=== PATIENT | female | born 1960 | race Two or more races ===

== ENCOUNTER 2018-02-23 21:23 | Emergency (ER) | payer OTHER ==
--- NOTE | 2018-02-23 23:05 | ER Document Report ---
ED Medical Screen (RME) - General Chief Complaint: Hand Pain Stated Complaint: FINGER INJURY Time Seen by Provider: 02/23/18 23:03 Mode of Arrival: Ambulatory Information source: Patient Notes: 57-year-old female presents to ED for complaint of pain to her right middle finger. She states that her neighbors and her's dogs were all in the yard together and she called the dog and he would not come to her she was standing on the top step tried to bring reach over to grab the dog to bring her to her. She states when she was pulling the dog her right middle finger snapped and then it looked funny and she thought she might have dislocated her finger. She states it will not move now. Patient's finger is flexed at 1 of its joints and she states it hurts too much to try to straighten it. I have greeted and performed a rapid initial assessment of this patient. A comprehensive ED assessment and evaluation of the patient, analysis of test results and completion of medical decision making process will be conducted by an additional ED providers. TRAVEL OUTSIDE OF THE [place] IN LAST 30 DAYS: No - Related Data Allergies/Adverse Reactions: codeine Allergy (Verified 06/17/16 16:33) Past Medical History - Past Medical History Cardiac Medical History: Reports: Hx Hypertension Pulmonary Medical History: Denies: Hx Tuberculosis Neurological Medical History: Reports: Hx Cerebrovascular Accident. Denies: Hx Seizures Psychiatric Medical History: Reports: Hx Anxiety Denies: Hx Depression - Immunizations Hx Diphtheria, Pertussis, Tetanus Vaccination: Yes Physical Exam - Vital signs Vitals: Temp Pulse Resp BP Pulse Ox 98.6 F 91 18 200/103 H 97 02/23/18 21:30 02/23/18 21:30 02/23/18 21:30 02/23/18 21:30 02/23/18 21:30 Course - Vital Signs Vital signs: Temp Pulse Resp BP Pulse Ox 98.6 F 91 18 200/103 H 97 02/23/18 21:30 02/23/18 21:30 02/23/18 21:30 02/23/18 21:30 02/23/18 21:30
--- NOTE | 2018-02-23 23:47 | RADIOLOGY REPORT (SQ) ---
EXAM DESCRIPTION: XR HAND 3 OR MORE VIEWS COMPLETED DATE/TME: 02/23/2018 23:03 CLINICAL HISTORY: pain and injury right middle finger COMPARISON: None. FINDINGS: 3 views of the right hand. No acute fracture or dislocation. Normal osseous mineralization. No radiopaque foreign bodies. IMPRESSION: No acute fracture or dislocation.
--- NOTE | 2018-02-24 00:30 | ER Document Report ---
ED Hand/Wrist Injury - General Chief Complaint: Hand Pain Stated Complaint: FINGER INJURY Time Seen by Provider: 02/23/18 23:03 Mode of Arrival: Ambulatory Notes: Patient with complaint of possible dislocated finger. Patient reports that she reached out for her dog when her right 3rd digit "slipped out of place". No trauma. TRAVEL OUTSIDE OF THE [place] IN LAST 30 DAYS: No - Related Data Allergies/Adverse Reactions: codeine Allergy (Verified 06/17/16 16:33) Past Medical History - General Information source: Patient - Social History Smoking Status: Current Every Day Smoker Frequency of alcohol use: None Drug Abuse: None Lives with: Family Family History: Arthritis, CAD, CVA, DM, Hyperlipidemia, Hypertension - Past Medical History Cardiac Medical History: Reports: Hx Hypertension Pulmonary Medical History: Denies: Hx Tuberculosis Neurological Medical History: Reports: Hx Cerebrovascular Accident. Denies: Hx Seizures Psychiatric Medical History: Reports: Hx Anxiety Denies: Hx Depression - Immunizations Hx Diphtheria, Pertussis, Tetanus Vaccination: Yes Review of Systems - Review of Systems Constitutional: No symptoms reported EENT: No symptoms reported Cardiovascular: No symptoms reported Respiratory: No symptoms reported Gastrointestinal: No symptoms reported Genitourinary: No symptoms reported Female Genitourinary: No symptoms reported Musculoskeletal: See HPI Skin: No symptoms reported Hematologic/Lymphatic: No symptoms reported Neurological/Psychological: No symptoms reported Physical Exam - Vital signs Vitals: Temp Pulse Resp BP Pulse Ox 98.6 F 91 18 200/103 H 97 02/23/18 21:30 02/23/18 21:30 02/23/18 21:30 02/23/18 21:30 02/23/18 21:30 - Notes Notes: PHYSICAL EXAMINATION: GENERAL: Well-appearing, well-nourished and in no acute distress. HEAD: Atraumatic, normocephalic. EYES: Pupils equal round and reactive to light, extraocular movements intact, conjunctiva are normal. ENT: Nares patent, oropharynx clear without exudates. Moist mucous membranes. NECK: Normal range of motion, supple without lymphadenopathy LUNGS: Breath sounds clear to auscultation bilaterally and equal. No wheezes rales or rhonchi. HEART: Regular rate and rhythm without murmurs Female : deferred Musculoskeletal: Normal range of motion, no pitting or edema. No cyanosis. Right 3rd digit extended towards palm. NEUROLOGICAL: Cranial nerves grossly intact. Normal speech, normal gait. Normal sensory, motor exams PSYCH: Normal mood, normal affect. SKIN: Warm, Dry, normal turgor, no rashes or lesions noted. Course - Re-evaluation Re-evalutation: Patient with involuntary extension of third right digit. Finger extended towards palm. Finger repositioned easily and without pain. Xray is negative for any acute fractures or dislocation. Will myah tape finger to second digit and have patient follow up with ortho next week. - Vital Signs Vital signs: Temp Pulse Resp BP Pulse Ox 98.0 F 67 15 211/100 H 95 02/24/18 00:44 02/24/18 00:44 02/24/18 00:44 02/24/18 02:05 02/24/18 00:44 Procedures - Immobilization right 3rd digit Immobilizer type: Other Performed by: Provider assisted Post-Proc Neuro Vasc Exam: Normal Alignment checked and good: Yes Discharge - Discharge Clinical Impression: Finger injury Qualifiers: Encounter type: initial encounter Laterality: right Qualified Code(s): S69.91XA - Unspecified injury of right wrist, hand and finger(s), initial encounter Condition: Stable Disposition: HOME, SELF-CARE Additional Instructions: Finger Tendon Injury/strain You had a finger tendon strain. It has been put back into proper position and splinted. The ligament and joint capsule injuries require time for healing. Sometimes the joint will remain somewhat enlarged by the scar tissue formed during the healing process. The usual treatment is to immobilize the joint with a splint while healing begins. The hand should be cold-packed and elevated. Once the swelling and pain are decreased, [id number] exercises are prescribed to prevent permanent stiffness of the joint. Some degree of protection is usually necessary for three to four weeks. Call the doctor or return at once if the finger becomes numb, dusky, or severely swollen, or if pain becomes severe. Please call Dr. chapman's office in the morning on Tuesday to schedule an appointment. Please keep the splint in place until you are seen by the orthopedic provider. If you experience pain or discomfort you can take ibuprofen. Referrals: ANTHONY LANCASTER, [ACTIVE STAFF] - Follow up as needed
[2018-02-24] MEDS ORDERED: LISINOPRIL 10 MG TABLET PO ONE (00:54)
[2018-02-24] MEDS ORDERED: HYDRALAZINE HCL 50 MG TABLET PO ONE (00:55)
[2018-02-24] MEDS ORDERED: AMLODIPINE BESYLATE 5 MG TABLET PO ONE (00:55)
[2018-02-24 02:20] VITALS: BP 211/100
== END 2018-02-24 02:05 | disposition home or self-care (01) ==
LOC: ER 21:23
DX: S69.91XA Unspecified injury of right wrist, hand and finger(s), initial encounter (principal); X58.XXXA Exposure to other specified factors, initial encounter; Y93.89 Activity, other specified; Y92.9 Unspecified place or not applicable; Y99.9 Unspecified external cause status; Z88.8 Allergy status to other drugs, medicaments and biological substances
CPT/HCPCS: 99283

== ENCOUNTER 2019-06-21 18:52 | Inpatient (IN) | payer SELFPAY ==
[2019-06-21] MEDS ORDERED: HYDRALAZINE HCL INJ/PF 20 MG/1 ML SDV IV ONE ×3 (19:09→19:41)
--- NOTE | 2019-06-21 19:20 | ER Document Report ---
ED Neuro Symptoms/Deficit - General Chief Complaint: S/S of Possible Stroke Stated Complaint: POSSIBLE STROKE Time Seen by Provider: 06/21/19 19:04 Mode of Arrival: Stretcher Information source: Patient, Relative, Emergency Med Personnel Notes: Poor historian TRAVEL OUTSIDE OF THE [place] IN LAST 30 DAYS: No - HPI Patient complains to provider of: Difficulty standing, Paralysis - Right-sided body Onset: Yesterday Symptoms are: Constant Duration: Continues in ED Quality of pain: No pain Loss of consciousness: No loss of consciousness Was STROKE ALERT Called: No Baseline Cognitive: Alert, oriented X 3 Baseline Gait: Uses a cane/walker Pre-existing weakness: Lower extremity Alert To: Name/Voice Patient Orientation: Person, Place, Time, Events New weakness: RUE, RLE Altered sensation: denies: LUE, LLE, RUE, RLE, L facial, R facial, General (diffuse) Decreased ability to stand/walk: Cannot stand Impaired speech/swallowing: Difficult Vision problem/glaucoma: No Associated symptoms: denies: Chest pain Notes: Previous stroke in 2013. Noncompliant with medications for hypertension. Lives alone. - Related Data Allergies/Adverse Reactions: codeine Allergy (Verified 06/17/16 16:33) Home Medications: Lisiniopril, HCTz, ASA Past Medical History - General Information source: Patient - Social History Smoking Status: Unknown if Ever Smoked Family History: Arthritis, CAD, CVA, DM, Hyperlipidemia, Hypertension Patient has suicidal ideation: No Patient has homicidal ideation: No - Past Medical History Cardiac Medical History: Reports: Hx Hypertension Pulmonary Medical History: Denies: Hx Tuberculosis Neurological Medical History: Reports: Hx Cerebrovascular Accident. Denies: Hx Seizures Renal/ Medical History: Denies: Hx Peritoneal Dialysis Psychiatric Medical History: Reports: Hx Anxiety Denies: Hx Depression - Immunizations Hx Diphtheria, Pertussis, Tetanus Vaccination: Yes Review of Systems - Review of Systems Notes: Constitutional: Negative for fever. HENT: Negative for sore throat. Eyes: Negative for visual changes. Cardiovascular: Negative for chest pain. Respiratory: Negative for shortness of breath. Gastrointestinal: Negative for abdominal pain, vomiting or diarrhea. Genitourinary: Negative for dysuria. Musculoskeletal: Negative for back pain. Skin: Negative for rash. Neurological: As per HPI. 10 point ROS negative except as marked above and in HPI. Physical Exam - Vital signs Vitals: Pulse Resp BP Pulse Ox 63 16 223/123 H 100 06/21/19 19:02 06/21/19 19:02 06/21/19 19:02 06/21/19 19:02 Notes: GENERAL: Chronically ill-appearing female with obvious dense right hemiplegia SKIN: Good turgor no rashes. HEAD: Normocephalic atraumatic. EYES: PERRLA. Conjunctivae and sclerae clear. EARS: CANALS AND TMS CLEAR. NOSE: CLEAR. MOUTH: Moist mucosa. Poor dentition. No stridor or edema. No drooling. NECK: Supple. No masses or thyromegaly. No adenopathy. Carotids 2+ without bruits. No JVD. BACK: Symmetrical without tenderness. CHEST: Respirations unlabored. Breath sounds clear and symmetrical. HEART: Regular rhythm. No murmur gallop or rub. ABDOMEN: Soft nontender without masses, organomegaly or rebound. Bowel sounds normally active. No bruits. GENITALIA: Deferred. EXTREMITIES: No edema. No calf tenderness. Cap refill less than 1.5 seconds. Dorsalis pedis and posterior tibial pulses 3+ and symmetrical. NEUROLOGICAL: GCS 15. Alert and oriented x3. Unable to stand. Right hemiplegia. No sensory deficit detected. Finger-nose testing is normal on the left. No facial ptosis appreciated. Course - Re-evaluation Re-evalutation: 06/21/19 19:21 Patient is not a candidate for lytic therapy due to the timing of her p resentation. Her blood pressure is also uncontrolled. We will initiate IV hydralazine. Head CT is ordered as well as CBC coags and comprehensive metabolic profile. 06/21/19 19:42 BP still >200/100. 2nd IV dose Hydralazine orderd. 06/21/19 22:16 Patient was given additional dose of labetalol IV and her blood pressure is now 155 systolic. Her neurologic deficits are unchanged. Case is discussed with the hospitalist on-call Dr. Jero Aaron who has accepted for admission. - Vital Signs Vital signs: Temp Pulse Resp BP Pulse Ox 67 16 238/146 H 100 06/21/19 19:10 06/21/19 19:10 06/21/19 19:10 06/21/19 19:10 - Laboratory Result Diagrams: 06/21/19 18:55 06/21/19 20:11 - EKG Interpretation by Ok EKG shows normal: Sinus rhythm - LVH with repolarization changes essentially unchanged from old EKG 2013. Critical Care Note - Critical Care Note Total time excluding time spent on procedures (mins): 75 Comments: IV hydralazine to be administered for control blood pressure. IV labetalol administered for lowering blood pressure. Discharge - Discharge Clinical Impression: Subacute CVA, Hypertensive emergency Condition: Fair Disposition: ADMITTED INPATIENT Admitting Provider: Galen (Hospitalist) Unit Admitted: [facility]
[2019-06-21 19:21] LABS: ABSOLUTE EOSINOPHILS # (AUTO) 0.1 10^3/uL (0.0-0.6); ABSOLUTE LYMPHOCYTES (AUTO) 1.2 10^3/uL (0.5-4.7); ABSOLUTE MONOCYTES (AUTO) 0.5 10^3/uL (0.1-1.4); ABSOLUTE NEUT (AUTO) 4.8 10^3/uL (1.7-8.2); BASOPHILS % (AUTO) 0.2 % (0-2); EOSINOPHILS % (AUTO) 0.8 % (0-6); HEMATOCRIT 51.2 % (36.0-47.0); HEMOGLOBIN 17.4 g/dL (12.0-15.5); LYMPHOCYTES % (AUTO) 18.1 % (13-45); MEAN CORPUSCULAR HEMOGLOBIN 32.8 pg (27.0-33.4); MEAN CORPUSCULAR HGB CONC 33.9 g/dL (32.0-36.0); MEAN CORPUSCULAR VOLUME 97 fl (80-97); MONOCYTES % (AUTO) 7.6 % (3-13); PLATELET COUNT 206 10^3/uL (150-450); RED CELL DISTRIBUTION WIDTH 13.6 % (11.5-14.0); SEGMENTED NEUTROPHILS % (AUTO) 73.3 % (42-78); TOTAL CELLS COUNTED % (AUTO) 100 %; WHITE BLOOD COUNT 6.6 10^3/uL (4.0-10.5)
[2019-06-21 19:29] LABS: INTERNATIONAL RATION (INR) 0.91; PARTIAL THROMBOPLASTIN TIME 26.5 SEC (23.5-35.8); PROTHROMBIN TIME 12.2 SEC (11.4-15.4)
--- NOTE | 2019-06-21 19:43 | RADIOLOGY REPORT (SQ) ---
EXAM DESCRIPTION: CT HEAD WITHOUT COMPLETED DATE/TIME: 06/21/2019 7:30 pm REASON FOR STUDY: cva COMPARISON: CT HEAD 12/20/2013 TECHNIQUE: Axial images acquired through the brain without intravenous contrast. Images reviewed wi th bone, brain and subdural windows. Additional sagittal and coronal reconstructions were generated. Images stored on PACS. All CT scanners at this facility use dose modulation, iterative reconstruction, and/or weight based d osing when appropriate to reduce radiation dose to as low as reasonably achievable (ALARA). [facility]: Dose Right [facility]: CareDose [facility]: Dose Right [facility]: Teradose 4D [facility]: [employer] RADIATION DOSE: CT Rad equipment meets quality standard of care and radiation dose reduction techniq ues were employed. CTDIvol: 53.2 mGy. DLP: 1017 mGy-cm. mGy. LIMITATIONS: None. FINDINGS: VENTRICLES: Normal size and contour. CEREBRUM: No masses. No hemorrhage. No midline shift. No evidence for acute infarction. Old left cerebellar infarct. Few scattered areas of low density in the white matter most likely chronic small vessel ischemic changes. CEREBELLUM: No masses. No hemorrhage. No alteration of density. No evidence for acute infarction. EXTRAAXIAL SPACES: No fluid collections. No masses. ORBITS AND GLOBE: No intra- or extraconal masses. Normal contour of globe without masses. CALVARIUM: No fracture. PARANASAL SINUSES: No fluid or mucosal thickening. SOFT TISSUES: No mass or hematoma. OTHER: No other significant finding. IMPRESSION: No acute intracranial findings. Old left cerebellar infarct and chronic small vessel is chemic changes. EVIDENCE OF ACUTE STROKE: NO. COMMENT: Quality ID # [id number]: Final reports with documentation of one or more dose reduction techniques (e.g., Automated exposure control, adjustment of the mA and/or kV according to patient size, use of iterative reconstruction technique) TECHNICAL DOCUMENTATION: JOB ID: [id number] [employer]- All Rights Reserved Reading location - IP/workstation name: [email or web address]
--- NOTE | 2019-06-21 19:44 | RADIOLOGY REPORT (SQ) ---
EXAM DESCRIPTION: CHEST SINGLE VIEW COMPLETED DATE/TIME: 06/21/2019 7:33 pm REASON FOR STUDY: cva COMPARISON: 12/18/2013 EXAM PARAMETERS: NUMBER OF VIEWS: One view. TECHNIQUE: Single frontal radiographic view of the chest acquired. RADIATION DOSE: NA LIMITATIONS: None. FINDINGS: LUNGS AND PLEURA: No opacities, masses or pneumothorax. No pleural effusion. MEDIASTINUM AND HILAR STRUCTURES: No masses. Contour normal. HEART AND VASCULAR STRUCTURES: Heart normal in size. Normal vasculature. BONES: No acute findings. HARDWARE: None in the chest. OTHER: No other significant finding. IMPRESSION: NO ACUTE RADIOGRAPHIC FINDING IN THE CHEST. TECHNICAL DOCUMENTATION: JOB ID: [id number] [employer]- All Rights Reserved Reading location - IP/workstation name: [email or web address]
[2019-06-21 20:14] LABS: APPEARANCE,URINE SLIGHTLY-CLOUDY; BILIRUBIN,URINE NEGATIVE (NEGATIVE); COLOR,URINE YELLOW; GLUCOSE, URINE NEGATIVE (NEGATIVE); KETONES,URINE TRACE mg/dL (NEGATIVE); LEUKOCYTE ESTERASE,URINE TRACE (NEGATIVE); NITRITE,URINE NEGATIVE (NEGATIVE); PROTEIN,URINE NEGATIVE (NEGATIVE); URINE SPECIFIC GRAVITY 1.018; UROBILINOGEN,URINE NEGATIVE mg/dL (<2.0)
[2019-06-21] MEDS ORDERED: LABETALOL HCL INJ 20 MG/4 ML DISP.SYRIN IV ONE (20:56)
[2019-06-21 20:58] LABS: ALBUMIN 4.5 g/dL (3.5-5.0); ALKALINE PHOSPHATASE 77 U/L (38-126); ANION GAP 10 (5-19); ASPARTATE AMINO TRANSFERASE 36 U/L (14-36); BILIRUBIN,DIRECT 0.3 mg/dL (0.0-0.4); BILIRUBIN,TOTAL 1.6 mg/dL (0.2-1.3); BLOOD UREA NITROGEN 19 mg/dL (7-20); CALCIUM 10.1 mg/dL (8.4-10.2); CARBON DIOXIDE 30 mmol/L (22-30); CHLORIDE 100 mmol/L (98-107); GLUCOSE 101 mg/dL (75-110); POTASSIUM 3.4 mmol/L (3.6-5.0); TOTAL PROTEIN 7.8 g/dL (6.3-8.2)
[2019-06-21 20:59] LABS: ALCOHOL < 10 mg/dL (NONE DETECTED)
[2019-06-21 21:32] LABS: URINE AMPHETAMINES SCREEN NEGATIVE; URINE BARBITURATES SCREEN NEGATIVE; URINE BENZODIAZEPINES SCREEN NEGATIVE; URINE COCAINE SCREEN NEGATIVE; URINE MARIJUANA (THC) SCREEN UNCONFIRMED POSITIVE; URINE METHADONE SCREEN NEGATIVE; URINE PHENCYCLIDINE SCREEN NEGATIVE
[2019-06-21] MEDS ORDERED: ASPIRIN 300 MG SUPP, RECTAL PR ONE (22:30)
[2019-06-21] MEDS ORDERED: DEXTROSE 40% GEL 15 GM TUBE PO PRN ×2 (22:38)
[2019-06-21] MEDS ORDERED: DEXTROSE 50%-WATER 25 GM/50 ML DISP.SYRIN IV PRN ×2 (22:38)
[2019-06-21] MEDS ORDERED: ACETAMINOPHEN 650 MG SUPP.RECT PR PRN (22:38)
[2019-06-21] MEDS ORDERED: GLUCAGON,HUMAN RECOMB 1 MG INJ IM PRN (22:38)
--- NOTE | 2019-06-21 22:38 | EKG REPORT ---
SEVERITY:- ABNORMAL ECG - SINUS RHYTHM PROBABLE LEFT ATRIAL ABNORMALITY LVH WITH SECONDARY REPOLARIZATION ABNORMALITY ANTERIOR INJURY, EARLY ACUTE INFARCT : Confirmed by: Saeed Luciano 21-Jun-2019 22:37:52
[2019-06-21] MEDS ORDERED: METOPROLOL TARTRATE PF/INJ 5 MG/5 ML SDV IV PRN (22:42)
[2019-06-21] MEDS ORDERED: ENALAPRILAT DIHYDRATE INJ/PF 1.25 MG/1 ML SDV IV PRN (22:42)
[2019-06-21] MEDS ORDERED: FAMOTIDINE INJ/PF 20 MG/2 ML SDV IV ONE (23:00)
[2019-06-22] MEDS ORDERED: INFLUENZA QUAD (6MOS+) 2019-20 VAC 0.5 ML SYR IM ONE (01:59)
--- NOTE | 2019-06-22 05:01 | PDOC H&P ---
History of Present Illness Admission Date/PCP: 06/21/19 22:23 Patient complains of: Right-sided weakness History of Present Illness: RODOLFO MUÑOZ is a 59 year old female with a past medical history of diabetes, hypertension, dyslipidemia, CVA without significant residual, tobacco and cannabis use. Patient presents 24 hours after the onset of right-sided weakness slurred speech, cough and difficulty swallowing. In the emergency room she is found to have hypertensive emergency with a blood pressure of 245/130 she receives hydralazine and referred to the hospitalist for admission. CT head shows prior ischemic stroke, EKG shows strain pattern. Patient is a poor historian but denies palpitations Past Medical History Cardiac Medical History: Reports: Hypertension Pulmonary Medical History: Reports: Bronchitis Denies: Tuberculosis Neurological Medical History: Reports: Ischemic CVA Denies: Seizures Endocrine Medical History: Reports: Diabetes Mellitus Type 1 Psychiatric Medical History: Reports: Substance Abuse, Tobacco Dependency Denies: Depression Social History Information Source: Patient, [facility] Records Smoking Status: Current Every Day Smoker Cigarettes Packs Per Day: 1 Electronic Cigarette use?: No Frequency of Alcohol Use: Heavy Hx Recreational Drug Use: No Drugs: Marijuana Hx Prescription Drug Abuse: No - Advance Directive Resuscitation Status: Full Code Family History Family History: Arthritis, CAD, CVA, DM, Hyperlipidemia, Hypertension Parental Family History Reviewed: Yes Children Family History Reviewed: Yes Sibling(s) Family History Reviewed.: Yes Medication/Allergy Home Medications: Amlodipine Besylate [Norvasc 5 mg Tablet] 5 mg PO Q12 #0 tablet 12/21/13 Aspirin [Ecotrin 325 mg EC Tablet] 325 mg PO DAILY #0 tabec 12/21/13 Calcium Carbonate [Tums] 1 tab.chew PO TID #1 pkg 12/21/13 Famotidine [Pepcid 20 mg Tablet] 20 mg PO Q12 #0 tablet 12/21/13 Hydralazine HCl [Apresoline 50 mg Tablet] 50 mg PO Q12 #0 tablet 12/21/13 Lisinopril [Prinivil 10 mg Tablet] 10 mg PO Q12 #0 tablet 12/21/13 Oxycodone HCl/Acetaminophen [Percocet 5-325 mg Tablet] 1 tab PO Q4HP PRN #30 tablet 12/21/13 Simvastatin [Zocor 40 mg Tablet] 40 mg PO QHS #0 tablet 12/21/13 Cephalexin Monohydrate [Keflex 500 mg Capsule] 500 mg PO QID #28 capsule 06/17/16 Hydrocodone/Acetaminophen [Strawn 5-325 mg Tablet] 1 tab PO Q6HP PRN #14 tablet 06/17/16 Sulfamethoxazole/Trimethoprim [Bactrim Ds Tablet] 1 each PO BID #14 tablet 06/17/16 Allergies/Adverse Reactions: codeine Allergy (Verified 06/17/16 16:33) Review of Systems Constitutional: ABSENT: chills, fever(s), headache(s), weight gain, weight loss Eyes: ABSENT: visual disturbances Ears: ABSENT: hearing changes Cardiovascular: ABSENT: chest pain, dyspnea on exertion, edema, orthropnea, palpitations Respiratory: ABSENT: cough, hemoptysis Gastrointestinal: ABSENT: abdominal pain, constipation, diarrhea, hematemesis, hematochezia, nausea, vomiting Genitourinary: ABSENT: dysuria, hematuria Musculoskeletal: ABSENT: joint swelling Integumentary: ABSENT: rash, wounds Neurological: ABSENT: abnormal gait, abnormal speech, confusion, dizziness, focal weakness, syncope Psychiatric: ABSENT: anxiety, depression, homidical ideation, suicidal ideation Endocrine: ABSENT: cold intolerance, heat intolerance, polydipsia, polyuria Hematologic/Lymphatic: ABSENT: easy bleeding, easy bruising Physical Exam Vital Signs: Temp Pulse Resp BP Pulse Ox 97.9 F 51 L 16 167/82 H 95 06/22/19 04:09 06/22/19 04:09 06/22/19 04:09 06/22/19 04:09 06/22/19 04:09 Intake & Output 06/20/19 06/21/19 06/22/19 11:59 11:59 11:59 Weight 48.5 kg General appearance: PRESENT: cooperative, disheveled, mild distress, well- developed, well-nourished Head exam: PRESENT: atraumatic, normocephalic Eye exam: PRESENT: conjunctiva pink, EOMI, PERRLA. ABSENT: scleral icterus Ear exam: PRESENT: normal external ear exam Mouth exam: PRESENT: moist. ABSENT: tongue midline Teeth exam: PRESENT: poor dentation Neck exam: ABSENT: carotid bruit, JVD, lymphadenopathy, thyromegaly Respiratory exam: PRESENT: clear to auscultation magy. ABSENT: rales, rhonchi, wheezes Cardiovascular exam: PRESENT: RRR. ABSENT: diastolic murmur, rubs, systolic murmur Pulses: PRESENT: normal dorsalis pedis pul Vascular exam: PRESENT: normal capillary refill GI/Abdominal exam: PRESENT: normal bowel sounds, soft. ABSENT: distended, guarding, mass, organolmegaly, rebound, tenderness Rectal exam: PRESENT: deferred Extremities exam: PRESENT: full ROM. ABSENT: calf tenderness, clubbing, pedal edema Musculoskeletal exam: PRESENT: full ROM, other - 4+ of 5 strength in the right upper extremity. ABSENT: normal inspection, tenderness Neurological exam: PRESENT: alert, awake, oriented to person, oriented to place, oriented to time, oriented to situation, CN II-XII grossly intact. ABSENT: motor sensory deficit Psychiatric exam: PRESENT: appropriate affect, normal mood. ABSENT: homicidal ideation, suicidal ideation Skin exam: PRESENT: dry, intact, warm. ABSENT: cyanosis, rash Results Laboratory Results: 06/21/19 18:55 06/21/19 20:11 06/21/19 06/21/19 06/21/19 18:55 18:55 19:55 WBC 6.6 RBC 5.30 H Hgb 17.4 H Hct 51.2 H MCV 97 MCH 32.8 MCHC 33.9 RDW 13.6 Plt Count 206 Seg Neutrophils % 73.3 Sodium Cancelled Potassium Cancelled Chloride Cancelled Carbon Dioxide Cancelled Anion Gap Cancelled BUN Cancelled Creatinine Cancelled Est GFR ( Amer) Cancelled Est GFR (Non-Af Amer) Cancelled Glucose Cancelled Calcium Cancelled Total Bilirubin Cancelled AST Cancelled Alkaline Phosphatase Cancelled Total Protein Cancelled Albumin Cancelled Urine Color YELLOW Urine Appearance SLIGHTLY-CLOUDY Urine pH 5.0 Ur Specific [place] 1.018 Urine Protein NEGATIVE Urine Glucose (UA) NEGATIVE Urine Ketones TRACE H Urine Blood NEGATIVE Urine Nitrite NEGATIVE Ur Leukocyte Esterase TRACE H Urine WBC (Auto) 5 Urine RBC (Auto) 2 06/21/19 20:11 WBC RBC Hgb Hct MCV MCH MCHC RDW Plt Count Seg Neutrophils % Sodium 139.5 Potassium 3.4 L Chloride 100 Carbon Dioxide 30 Anion Gap 10 BUN 19 Creatinine 0.82 Est GFR ( Amer) > 60 Est GFR (Non-Af Amer) Glucose 101 Calcium 10.1 Total Bilirubin 1.6 H AST 36 Alkaline Phosphatase 77 Total Protein 7.8 Albumin 4.5 Urine Color Urine Appearance Urine pH Ur Specific [place] Urine Protein Urine Glucose (UA) Urine Ketones Urine Blood Urine Nitrite Ur Leukocyte Esterase Urine WBC (Auto) Urine RBC (Auto) 06/21/19 06/21/19 18:55 20:11 Troponin I Cancelled 0.043 Impressions: Chest X-Ray 06/21/19 19:12 IMPRESSION: NO ACUTE RADIOGRAPHIC FINDING IN THE CHEST. Head CT 06/21/19 19:12 IMPRESSION: No acute intracranial findings. Old left cerebellar infarct and chronic small vessel ischemic changes. EVIDENCE OF ACUTE STROKE: NO. Assessment and Plan - Diagnosis (1) CVA (cerebral vascular accident) Is this a current diagnosis for this admission?: Yes Plan: CVA care set deployed, comp gated by dysphasia, [place] aspirin, permissive hypertension, follow-up physical, occupational, speech therapy. Will undoubtedly require placement (2) Diabetes 1.5, managed as type 1 Is this a current diagnosis for this admission?: Yes Plan: Humalog every 6 hours, follow-up A1c (3) Hypertensive emergency Is this a current diagnosis for this admission?: Yes Plan: Permissive hypertension, Lopressor PRN systolic pressure greater than 200 - Time Time Spent with patient: 25-34 minutes - Inpatient Certification Medical Necessity: Need Close Monitoring Due to Risk of Patient Decompensation
[2019-06-22 05:40] LABS: HEMATOCRIT 47.3 % (36.0-47.0); HEMOGLOBIN 16.4 g/dL (12.0-15.5); MEAN CORPUSCULAR HEMOGLOBIN 33.2 pg (27.0-33.4); MEAN CORPUSCULAR HGB CONC 34.6 g/dL (32.0-36.0); MEAN CORPUSCULAR VOLUME 96 fl (80-97); PLATELET COUNT 181 10^3/uL (150-450); RED BLOOD COUNT 4.93 10^6/uL (3.72-5.28); RED CELL DISTRIBUTION WIDTH 13.6 % (11.5-14.0); WHITE BLOOD COUNT 5.8 10^3/uL (4.0-10.5)
[2019-06-22 05:57] LABS: ANION GAP 8 (5-19); BLOOD UREA NITROGEN 19 mg/dL (7-20); CALCIUM 9.6 mg/dL (8.4-10.2); CARBON DIOXIDE 31 mmol/L (22-30); CHLORIDE 98 mmol/L (98-107); CHOLESTEROL 185.16 mg/dL (0-200); GLUCOSE 99 mg/dL (75-110); POTASSIUM 3.1 mmol/L (3.6-5.0); TRIGLYCERIDES 95 mg/dL (<150)
[2019-06-22] MEDS: HEPARIN SOD (PORCINE) 5,000 UNIT/ML 1 ML VIAL SUBCUT SCH ×2 (05:57→14:49)
[2019-06-22 06:13] LABS: DIRECT LDL 95 mg/dL (<100)
[2019-06-22] MEDS ORDERED: POTASSI CL 20 MEQ/50 ML RIDER 20 MEQ/50 ML RTUPB IV ONE (07:34)
[2019-06-22] MEDS ORDERED: POTASSIUM CHLORIDE 10 MEQ CAPSULE.ER PO ONE ×2 (07:34→10:56)
[2019-06-22] MEDS ORDERED: FAMOTIDINE INJ/PF 20 MG/2 ML SDV IV SCH (10:00)
[2019-06-22] MEDS ORDERED: ASPIRIN 300 MG SUPP, RECTAL PR SCH (10:00)
[2019-06-22] MEDS ORDERED: ASPIRIN 325 MG TABLET, ENT COATED PO SCH (11:30)
--- NOTE | 2019-06-22 14:26 | RADIOLOGY REPORT (SQ) ---
EXAM DESCRIPTION: CAROTID DOPPLER COMPLETED DATE/TIME: 06/22/2019 2:01 pm REASON FOR STUDY: cva COMPARISON: 12/19/2013 TECHNIQUE: Grayscale ultrasound, Doppler velocity and spectra, and color Doppler images acquired of the extra-cranial carotid and vertebral arteries. Images stored on PACS. LIMITATIONS: None. FINDINGS: RIGHT CAROTID CCA Velocities: Within normal limits. ICA Velocities Peak systolic 0.63 m/s. End diastolic 0.39 m/s. Proximal ICA/CCA peak systolic ratio 1.01. Spectra normal. No significant plaque. LEFT CAROTID CCA Velocities: Within normal limits. ICA Velocities Peak systolic 0.79 m/s. End diastolic 0.34 m/s. Proximal ICA/CCA peak systolic ratio 1.27. Spectra normal. No significant plaque. VERTEBRAL ARTERIES: Antegrade flow. Normal waveforms. SUBCLAVIAN ARTERIES: No finding. OTHER: No other significant finding. IMPRESSION: NO HEMODYNAMICALLY SIGNIFICANT STENOSIS. COMMENT: Quality ID #[id number]: Velocity criteria are extrapolated from the diameter data as defined by t he Society of Radiologists in Ultrasound Consensus Conference. Radiology 2003: 229; 340-346. TECHNICAL DOCUMENTATION: JOB ID: [id number] [employer]- All Rights Reserved Reading location - IP/workstation name: [email or web address]
--- NOTE | 2019-06-22 14:46 | RADIOLOGY REPORT (SQ) ---
EXAM DESCRIPTION: MRI HEAD WITHOUT COMPLETED DATE/TIME: 06/22/2019 2:33 pm REASON FOR STUDY: Right sided weakness, dysarthria COMPARISON: MR brain, 12/18/2013 TECHNIQUE: Multisequence multiplanar noncontrast MR examination of the brain including diffusion-rosalie ghted sequences. LIMITATIONS: None. FINDINGS: ANATOMY: No anomalies. Normal vascular flow voids. Pituitary fossa normal. CSF SPACES: Normal in size and contour. No hemorrhage. CEREBRUM: Sulci and gyri normal in size and contour. There is extensive scattered and confluent hugo ventricular and deep white matter T2/FLAIR hyperintensity with multiple small nonacute lacunar infarc tions of the bilateral basal ganglia and camargo radiata. POSTERIOR FOSSA: Encephalomalacia of the left cerebellar hemisphere in keeping with prior infarction. No hemorrhage. No edema, masses or mass effect. Internal auditory canals, cerebello-pontine angles , mastoids normal. DIFFUSION IMAGING: There is an acute diffusion restricting infarction of the left paramedian grace. ORBITS: No masses. Globes normal. PARANASAL SINUSES: No fluid levels. Mucosa normal. OTHER: No other significant finding. IMPRESSION: 1. There is an acute diffusion restricting infarction of the left paramedian grace. 2. Advanced small vessel white matter disease and evidence of prior lacunar and left cerebellar jeison spheric infarctions. EVIDENCE OF ACUTE STROKE: YES. TECHNICAL DOCUMENTATION: JOB ID: [id number] [employer]- All Rights Reserved Reading location - IP/workstation name: [email or web address]
--- NOTE | 2019-06-22 14:51 | RADIOLOGY REPORT (SQ) ---
EXAM DESCRIPTION: MRA HEAD WITHOUT COMPLETED DATE/TIME: 06/22/2019 2:40 pm REASON FOR STUDY: CVA COMPARISON: None. TECHNIQUE: Axial 3-D [id number]-[id number] acquisition imaging performed through the brain in the area of t he [place]. Images reformatted using 3-D MIPS. LIMITATIONS: None. FINDINGS: SOURCE IMAGES: No unexpected findings on source images. No large masses. 3-D MIP: No aneurysm. No occlusions. No significant stenosis. OTHER: No other significant finding. IMPRESSION: NORMAL MRA OF THE [place]. TECHNICAL DOCUMENTATION: JOB ID: [id number] [employer]- All Rights Reserved Reading location - IP/workstation name: [email or web address]
[2019-06-22] MEDS ORDERED: AMLODIPINE BESYLATE 5 MG TABLET PO ONE (15:00)
[2019-06-22 15:32] VITALS: BP 174/98
--- NOTE | 2019-06-22 15:35 | PDOC TRANSFER SUMMARY ---
General Admission Date/PCP: 06/21/19 22:23 Resuscitation Status: Full Code - Transfer Diagnosis (1) CVA (cerebral vascular accident) Is this a current diagnosis for this admission?: Yes (2) Hypertensive emergency Is this a current diagnosis for this admission?: Yes - Transfer Medications Transfer Medications: Current Medications Acetaminophen (Tylenol 650 Mg Supp) 650 mg VA Q4HP PRN PRN Reason: Temp greater than 101F Stop: 07/21/19 22:37 Amlodipine Besylate (Norvasc 5 Mg Tablet) 5 mg PO NOW ONE Stop: 06/22/19 14:09 Aspirin (Ecotrin 325 Mg Ec Tablet) 325 mg PO DAILY [facility] Stop: 07/22/19 11:29 Last Admin: 06/22/19 10:58 Dose: 325 mg Documented by: Dextrose (Dextrose Inj 50% Syringe (25 Gm/50 Ml)) 12.5 gm IV PRN PRN; Protocol PRN Reason: FOR BG 50-69 IN ALERT PATIENT Stop: 07/21/19 22:37 Dextrose (Dextrose Inj 50% Syringe (25 Gm/50 Ml)) 25 gm IV PRN PRN; Protocol PRN Reason: PER PROTOCOL Stop: 07/21/19 22:37 Enalaprilat (Vasotec Inj/Pf 1.25 Mg/1 Ml Sdv) 1.25 mg IV Q6HP PRN PRN Reason: sbp>180 Stop: 07/21/19 22:41 Last Admin: 06/22/19 00:28 Dose: 1.25 mg Documented by: Famotidine (Pepcid Inj/Pf 20 Mg/2 Ml Sdv) 20 mg IV Q12 [facility] Stop: 07/22/19 09:59 Last Admin: 06/22/19 10:36 Dose: 20 mg Documented by: Glucagon (Glucagen Inj 1 Mg Vial) 1 mg IM PRN PRN; Protocol PRN Reason: Evaluate for BG < 70 Stop: 07/21/19 22:37 Glucose (Glutose 40% Gel 15 Gm Tube) 15 gm PO PRN PRN; Protocol PRN Reason: FOR BG 50-69 IN ALERT PATIENT Stop: 07/21/19 22:37 Glucose (Glutose 40% Gel 15 Gm Tube) 30 gm PO PRN PRN; Protocol PRN Reason: FOR BG < 50 IN ALERT PATIENT Stop: 07/21/19 22:37 Heparin Sodium (Porcine) (Heparin Inj 5,000 Units/Ml 1 Ml Vial) 5,000 unit SUBCUT Q8 KATE Stop: 07/22/19 05:59 Last Admin: 06/22/19 05:57 Dose: 5,000 unit Documented by: Metoprolol Tartrate (Lopressor Inj/Pf 5 Mg/5 Ml Sdv) 5 mg IV Q6HP PRN PRN Reason: sbp>200 Stop: 07/21/19 22:41 Sodium Chloride (Saline Flush 2.5 Ml Monoject Prefil Syrin) 2.5 ml IV Q8 KATE Stop: 07/22/19 05:59 Last Admin: 06/22/19 05:57 Dose: Not Given Documented by: - Allergies Allergies/Adverse Reactions: codeine Allergy (Verified 06/17/16 16:33) Hospital Course Hospital Course: This is a 59-year-old female with past medical history of diabetes mellitus, hypertension, dyslipidemia, prior CVA with no reported residual unilateral weakness who presented with acute right-sided weakness and slurred speech 24 hours after onset of symptoms. Patient was not a TPA candidate. She was admitted for likely acute CVA. Blood pressures were severely elevated in the ER. She was given IV hydralazine and labetalol which did improve her blood pressures. She was also started on aspirin and statin. CT of the head came back negative for bleed or acute CVA and only showed old left cerebellar infarct. Blood pressures have improved in the 160/80s. Allow permissive hypertension in the setting of acute CVA. MRI was ordered and just got done and showed an acute left pontine CVA. Patient will be transferred to the [facility]. They do have a neurology service. Discussed case with accepting hospitalist, Dr. Jose Hui who accepted the transfer. Physical Exam Vital Signs: Temp Pulse Resp BP Pulse Ox 98.3 F 64 18 172/87 H 94 06/22/19 11:54 06/22/19 11:54 06/22/19 11:54 06/22/19 11:54 06/22/19 11:54 Intake & Output 06/21/19 06/22/19 06/23/19 06:59 06:59 06:59 Intake Total 0 Balance 0 Weight 106 lb 14.787 oz 106 lb 14.787 oz General appearance: PRESENT: no acute distress, well-developed, well-nourished Head exam: PRESENT: atraumatic, normocephalic Eye exam: PRESENT: conjunctiva pink, PERRLA. ABSENT: scleral icterus Ear exam: PRESENT: normal external ear exam Mouth exam: PRESENT: moist, tongue midline Neck exam: ABSENT: carotid bruit, JVD, lymphadenopathy, thyromegaly Respiratory exam: PRESENT: clear to auscultation magy. ABSENT: rales, rhonchi, wheezes Cardiovascular exam: PRESENT: RRR. ABSENT: diastolic murmur, rubs, systolic murmur Pulses: PRESENT: normal dorsalis pedis pul GI/Abdominal exam: PRESENT: normal bowel sounds, soft. ABSENT: distended, guarding, mass, organolmegaly, rebound, tenderness Rectal exam: PRESENT: deferred Extremities exam: PRESENT: full ROM. ABSENT: calf tenderness, clubbing, pedal edema Neurological exam: PRESENT: alert, awake, oriented to person, oriented to place, motor sensory deficit - RSW 1/ Results Laboratory Results: 06/22/19 05:06 06/22/19 05:06 06/21/19 06/21/19 06/21/19 18:55 18:55 19:55 WBC 6.6 RBC 5.30 H Hgb 17.4 H Hct 51.2 H MCV 97 MCH 32.8 MCHC 33.9 RDW 13.6 Plt Count 206 Seg Neutrophils % 73.3 Sodium Cancelled Potassium Cancelled Chloride Cancelled Carbon Dioxide Cancelled Anion Gap Cancelled BUN Cancelled Creatinine Cancelled Est GFR ( Amer) Cancelled Est GFR (Non-Af Amer) Cancelled Glucose Cancelled Calcium Cancelled Magnesium Total Bilirubin Cancelled AST Cancelled Alkaline Phosphatase Cancelled Total Protein Cancelled Albumin Cancelled Triglycerides Cholesterol LDL Cholesterol Direct VLDL Cholesterol HDL Cholesterol Urine Color YELLOW Urine Appearance SLIGHTLY-CLOUDY Urine pH 5.0 Ur Specific [place] 1.018 Urine Protein NEGATIVE Urine Glucose (UA) NEGATIVE Urine Ketones TRACE H Urine Blood NEGATIVE Urine Nitrite NEGATIVE Ur Leukocyte Esterase TRACE H Urine WBC (Auto) 5 Urine RBC (Auto) 2 06/21/19 06/22/19 06/22/19 20:11 05:06 05:06 WBC 5.8 RBC 4.93 Hgb 16.4 H Hct 47.3 H MCV 96 MCH 33.2 MCHC 34.6 RDW 13.6 Plt Count 181 Seg Neutrophils % Sodium 139.5 136.9 L Potassium 3.4 L 3.1 L Chloride 100 98 Carbon Dioxide 30 31 H Anion Gap 10 8 BUN 19 19 Creatinine 0.82 0.85 Est GFR ( Amer) > 60 > 60 Est GFR (Non-Af Amer) Glucose 101 99 Calcium 10.1 9.6 Magnesium Total Bilirubin 1.6 H AST 36 Alkaline Phosphatase 77 Total Protein 7.8 Albumin 4.5 Triglycerides 95 Cholesterol 185.16 LDL Cholesterol Direct 95 VLDL Cholesterol 19.0 HDL Cholesterol 77 Urine Color Urine Appearance Urine pH Ur Specific [place] Urine Protein Urine Glucose (UA) Urine Ketones Urine Blood Urine Nitrite Ur Leukocyte Esterase Urine WBC (Auto) Urine RBC (Auto) 06/22/19 05:06 WBC RBC Hgb Hct MCV MCH MCHC RDW Plt Count Seg Neutrophils % Sodium Potassium Chloride Carbon Dioxide Anion Gap BUN Creatinine Est GFR ( Amer) Est GFR (Non-Af Amer) Glucose Calcium Magnesium 2.1 Total Bilirubin AST Alkaline Phosphatase Total Protein Albumin Triglycerides Cholesterol LDL Cholesterol Direct VLDL Cholesterol HDL Cholesterol Urine Color Urine Appearance Urine pH Ur Specific [place] Urine Protein Urine Glucose (UA) Urine Ketones Urine Blood Urine Nitrite Ur Leukocyte Esterase Urine WBC (Auto) Urine RBC (Auto) 06/21/19 06/21/19 18:55 20:11 Troponin I Cancelled 0.043 Impressions: Chest X-Ray 06/21/19 19:12 IMPRESSION: NO ACUTE RADIOGRAPHIC FINDING IN THE CHEST. Head CT 06/21/19 19:12 IMPRESSION: No acute intracranial findings. Old left cerebellar infarct and chronic small vessel ischemic changes. EVIDENCE OF ACUTE STROKE: NO.
[2019-06-22] MEDS ORDERED: ATORVASTATIN CALCIUM 40 MG TABLET PO ONE (16:00)
== END 2019-06-22 16:43 | DRG 65 ==
LOC: ER 18:52 → EH 22:23 → 3W 06-22 00:59
PROVIDERS: ADMIT Internal Medicine; ATTEND Internal Medicine
DX: I63.219 Cerebral infarction due to unspecified occlusion or stenosis of unspecified vertebral artery (principal); I16.1 Hypertensive emergency; G81.91 Hemiplegia, unspecified affecting right dominant side; R47.81 Slurred speech; I10 Essential (primary) hypertension; R47.02 Dysphasia; E78.5 Hyperlipidemia, unspecified; E10.8 Type 1 diabetes mellitus with unspecified complications; F41.9 Anxiety disorder, unspecified; F12.90 Cannabis use, unspecified, uncomplicated; F17.210 Nicotine dependence, cigarettes, uncomplicated; Z60.2 Problems related to living alone; Z91.14 Patient's other noncompliance with medication regimen; Z79.82 Long term (current) use of aspirin; Z79.899 Other long term (current) drug therapy
CPT/HCPCS: 36415; 70450; 70544; 70551; 71045; 80048; 80053; 80061; 80307; 81001; 82962; 83036; 83735; 84132; 84484; 85025; 85027; 85610; 85730; 93005; 93010; 93880; 96374; 96375; 96376; 99291; 99292; J0360; J1644; J3480; J3490; S0028